=== PATIENT | male | born 1945 | race Caucasian/White ===

== ENCOUNTER → 2017-11-04 | Outpatient (REF) | payer MEDICARE, OTHER ==
[2017-11-04 20:25] LABS: APPEARANCE, URINE HAZY (CLEAR); BACTERIA, URINE AUTO NEGATIVE (NEGATIVE); BILIRUBIN, URINE AUTO NEGATIVE (NEGATIVE); BLOOD, URINE BLOOD NEGATIVE (NEGATIVE); COLOR, URINE YELLOW (YELLOW); GLUCOSE, URINE (UA) AUTO NEGATIVE (NEGATIVE); KETONE, URINE AUTO NEGATIVE (NEGATIVE); LEUKOCYTE ESTERASE, URINE AUTO NEGATIVE (NEGATIVE); MUCUS, URINE SMALL (NEGATIVE); NITRITE, URINE AUTO NEGATIVE (NEGATIVE); PROTEIN, URINE AUTO NEGATIVE (NEGATIVE); RBC, URINE AUTO 3 /HPF (0-3); SQUAMOUS EPITHELIAL CELL UR AU 0 /HPF (0-6); UROBILINOGEN, URINE AUTO 0.2 mg/dL (0.0-2.0); WBC, URINE AUTO 1 /HPF (0-3)
== END ==
LOC: M SMT 16:59
DX: R10.9 Unspecified abdominal pain (principal)
CPT/HCPCS: 81001

== ENCOUNTER → 2017-11-08 | Outpatient (CLI) | payer MEDICARE, BC, OTHER | LOC: M RAD 08:56 | DX: R10.9 Unspecified abdominal pain (principal) | CPT/HCPCS: 74176 ==

== ENCOUNTER → 2017-12-01 | Outpatient (CLI) | payer MEDICARE, BC, OTHER ==
[2017-12-01 08:44] LABS: HEMATOCRIT 46.3 % (42.0-52.0); HEMOGLOBIN 15.6 g/dl (13.5-17.5); MEAN CORPUSCULAR HEMOGLOBIN 32.6 pg (27.0-33.0); MEAN CORPUSCULAR HGB CONC 33.7 g/dl (32.0-36.5); MEAN CORPUSCULAR VOLUME 96.7 fl (80.0-96.0); PLATELET COUNT, AUTOMATED 195 10^3/uL (150-450); RED BLOOD COUNT 4.79 10^6/uL (4.30-6.10); RED CELL DISTRIBUTION WIDTH 12.5 % (11.5-14.5); WHITE BLOOD COUNT 5.1 10^3/uL (4.0-10.0)
[2017-12-01 08:54] LABS: INR 1.03; PROTHROMBIN TIME 13.6 SECONDS (12.1-14.4)
[2017-12-01 09:08] LABS: ANION GAP 9 MEQ/L (8-16); BLOOD UREA NITROGEN 21 MG/DL (7-18); CALCIUM LEVEL 8.8 MG/DL (8.8-10.2); CARBON DIOXIDE LEVEL 26 MEQ/L (21-32); CHLORIDE LEVEL 108 MEQ/L (98-107); CREATININE FOR GFR 1.33 MG/DL (0.70-1.30); GLOMERULAR FILTRATION RATE 56.1 (>42); GLUCOSE, FASTING 220 MG/DL (70-100); POTASSIUM SERUM 4.7 MEQ/L (3.5-5.1); SODIUM LEVEL 143 MEQ/L (136-145)
== END ==
LOC: M LAB 07:50
DX: Z01.812 Encounter for preprocedural laboratory examination (principal); N20.0 Calculus of kidney
CPT/HCPCS: 71046

== ENCOUNTER 2017-12-08 05:58 | Day surgery (SDC) | payer MEDICARE, BC, OTHER ==
[2017-12-08 06:44] LABS: BEDSIDE GLUCOSE 147 MG/DL (83-110)
[2017-12-08] MEDS: LR 1,000 ML IV (06:56)
[2017-12-08] MEDS ORDERED: LIDOCAINE 2% INJ 100 MG/5 ML SDV (FOR ANES.) As Ordered (07:20)
[2017-12-08] MEDS ORDERED: PROPOFOL 200 MG/20 ML VIAL As Ordered (07:21)
[2017-12-08] MEDS ORDERED: fentaNYL 100 MCG/2 ML INJECTION (J3010) As Ordered (07:21)
[2017-12-08] MEDS ORDERED: ONDANSETRON 4MG/2ML VIAL (J2405) As Ordered (07:21)
[2017-12-08] MEDS ORDERED: MIDAZOLAM INJ 2 MG/2 ML VIAL (J2250) As Ordered (07:21)
[2017-12-08] MEDS ORDERED: KETOROLAC 60 MG/2 ML VIAL (J1885) As Ordered (07:21)
[2017-12-08] MEDS ORDERED: dexameTHASONE 4 MG/ML 1ML VIAL (J1100) As Ordered (07:21)
[2017-12-08] MEDS: ceFAZolin SOD 1 GM in D5W MINI-BAG PLUS 50 ML IV (07:30)
[2017-12-08] MEDS: CONRAY-60 60% 50ML VIAL (Q9961) As Ordered (08:16)
[2017-12-08] MEDS ORDERED: NORCO, ANEXSIA 5/325MG TABLET (HYDROcodone/ACETAMINOPHEN) PO (09:30)
[2017-12-08] MEDS ORDERED: ONDANSETRON 4MG/2ML VIAL (J2405) IV (09:30)
[2017-12-08] MEDS ORDERED: PERCOCET 5MG/325MG TAB PO ×2 (09:30)
[2017-12-08] MEDS ORDERED: LR 1,000 ML IV (09:30)
[2017-12-08] MEDS ORDERED: fentaNYL 100 MCG/2 ML INJECTION (J3010) IV (09:30)
== END 2017-12-08 10:55 | disposition home or self-care (01) ==
LOC: M SDC 05:58
DX: N20.0 Calculus of kidney (principal); I10 Essential (primary) hypertension; E11.9 Type 2 diabetes mellitus without complications; Z79.82 Long term (current) use of aspirin; Z79.899 Other long term (current) drug therapy; Z79.84 Long term (current) use of oral hypoglycemic drugs
CPT/HCPCS: 52356

== ENCOUNTER → 2018-01-31 | Outpatient (CLI) | payer MEDICARE, BC, OTHER | LOC: M SMT 14:25 | DX: R14.0 Abdominal distension (gaseous) (principal); N20.0 Calculus of kidney; Z96.0 Presence of urogenital implants | CPT/HCPCS: 74018; 81001 ==

== ENCOUNTER → 2018-01-31 | Outpatient (REF) | payer MEDICARE, OTHER ==
[2018-01-31 19:14] LABS: APPEARANCE, URINE CLOUDY (CLEAR); BACTERIA, URINE AUTO 1+ (NEGATIVE); BILIRUBIN, URINE AUTO NEGATIVE (NEGATIVE); BLOOD, URINE BLOOD 2+ (NEGATIVE); COLOR, URINE YELLOW (YELLOW); GLUCOSE, URINE (UA) AUTO 1+ mg/dL (NEGATIVE); KETONE, URINE AUTO NEGATIVE (NEGATIVE); LEUKOCYTE ESTERASE, URINE AUTO 2+ (NEGATIVE); MUCUS, URINE SMALL (NEGATIVE); NITRITE, URINE AUTO NEGATIVE (NEGATIVE); PROTEIN, URINE AUTO 1+ mg/dL (NEGATIVE); RBC, URINE AUTO 36 /HPF (0-3); SPECIFIC GRAVITY URINE AUTO 1.018 (1.002-1.035); SQUAMOUS EPITHELIAL CELL UR AU 0 /HPF (0-6); UROBILINOGEN, URINE AUTO 0.2 mg/dL (0.0-2.0); WBC, URINE AUTO 9 /HPF (0-3)
== END ==
LOC: M SMT 17:20
DX: N20.0 Calculus of kidney (principal)
CPT/HCPCS: 81001

== ENCOUNTER → 2018-03-01 | Outpatient (REF) | payer MEDICARE, OTHER ==
[2018-03-01 14:31] LABS: HEPATITIS C VIRUS ABY INDEX < 0.0 INDEX (<0.8)
== END ==
LOC: M LAB REF 12:21
DX: Z01.89 Encounter for other specified special examinations (principal)
CPT/HCPCS: 86803

== ENCOUNTER 2018-03-08 07:39 | Day surgery (SDC) | payer MEDICARE, BC, OTHER ==
[~2018-03-08 07:39] MED LIST: ACETAMINOPHEN 325 MG TAB PO; PHENYLEPHRINE HCL 10 % OPHTH. SOL 5ML OD
[2018-03-08 08:32] LABS: BEDSIDE GLUCOSE 172 MG/DL (83-110)
[2018-03-08] MEDS: TROPICAMIDE 1% OPHTH SOLN 2ML OD (08:51)
[2018-03-08] MEDS: CYCLOPENTOLATE 2% OPHTH SOLN 2ML BTL OD (08:51)
[2018-03-08] MEDS: PHENYLEPHRINE 2.5% OPHTH SOL 2ML OD (08:51)
[2018-03-08] MEDS: LIDOCAINE 3.5 % 1ML OPHTH TOPICAL GEL OU (08:52)
[2018-03-08] MEDS: OFLOXACIN 0.3 % (OCUFLOX) OPTH SOL 5ML OD (08:52)
[2018-03-08] MEDS ORDERED: fentaNYL 100 MCG/2 ML INJECTION (J3010) As Ordered (09:46)
[2018-03-08] MEDS ORDERED: MIDAZOLAM INJ 2 MG/2 ML VIAL (J2250) As Ordered (09:46)
[2018-03-08] MEDS: POVIDONE-IODINE 5% OPHTH PREP SOL 30ML As Ordered (10:17)
[2018-03-08] MEDS: TRIAMCINOLONE PRES FR 40 MG/ML 1ML(TRIESENCE)(OR EYE ONLY)(J3300 PER 1MG) As Ordered (10:25)
[2018-03-08] MEDS: HEALON DUET (HEALON 10MG/ML 0.55ML & HEALON ENDOCOAT 30MG/ML 0.85ML) As Ordered (10:25)
[2018-03-08] MEDS: MOXIFLOXACIN IN BSS 0.25MG/0.25ML INTRACAMERAL INJ (OR EYE ONLY)(J2280) As Ordered (10:25)
[2018-03-08] MEDS: BSS with VANC/TOB/EPI for EYE CASES IR (10:26)
[2018-03-08] MEDS: LIDOCAINE 2% W/EPIN INJ 20ML **PRES FREE XX (10:26)
[2018-03-08] MEDS: LIDOCAINE 1% SDV 5 ML VIAL As Ordered (10:27)
[2018-03-08] MEDS ORDERED: TRIMETHOBENZAMIDE 300 MG CAP PO (11:00)
[2018-03-08] MEDS: AcetaZOLAMIDE 500 MG ER CAP PO (11:02)
== END 2018-03-08 11:18 | disposition home or self-care (01) ==
LOC: M SDC 07:39
DX: H25.9 Unspecified age-related cataract (principal); I10 Essential (primary) hypertension; E78.5 Hyperlipidemia, unspecified; E11.9 Type 2 diabetes mellitus without complications; Z79.84 Long term (current) use of oral hypoglycemic drugs; Z79.899 Other long term (current) drug therapy
CPT/HCPCS: 66984

== ENCOUNTER 2018-03-15 09:03 | Day surgery (SDC) | payer MEDICARE, BC, OTHER ==
[~2018-03-15 09:03] MED LIST changes: +MIDAZOLAM INJ 2 MG/2 ML VIAL (J2250) As Ordered; -PHENYLEPHRINE HCL 10 % OPHTH. SOL 5ML OD; +PHENYLEPHRINE HCL 10 % OPHTH. SOL 5ML OS; +fentaNYL 100 MCG/2 ML INJECTION (J3010) As Ordered
[2018-03-15] MEDS: TROPICAMIDE 1% OPHTH SOLN 2ML OS (09:42)
[2018-03-15] MEDS: CYCLOPENTOLATE 2% OPHTH SOLN 2ML BTL OS (09:42)
[2018-03-15] MEDS: LIDOCAINE 3.5 % 1ML OPHTH TOPICAL GEL OU (09:42)
[2018-03-15] MEDS: PHENYLEPHRINE 2.5% OPHTH SOL 2ML OS (09:42)
[2018-03-15] MEDS: OFLOXACIN 0.3 % (OCUFLOX) OPTH SOL 5ML OS (09:42)
[2018-03-15] MEDS: BSS with VANC/TOB/EPI for EYE CASES IR (11:55)
[2018-03-15] MEDS: MOXIFLOXACIN IN BSS 0.25MG/0.25ML INTRACAMERAL INJ (OR EYE ONLY)(J2280) As Ordered (11:55)
[2018-03-15] MEDS: TRIAMCINOLONE PRES FR 40 MG/ML 1ML(TRIESENCE)(OR EYE ONLY)(J3300 PER 1MG) As Ordered (11:55)
[2018-03-15] MEDS: HEALON DUET PRO(HEALON 10MG/ML 0.55ML & HEALON ENDOCOAT 30MG/ML 0.85ML) As Ordered (11:55)
[2018-03-15] MEDS: LIDOCAINE 1% SDV 5 ML VIAL As Ordered (11:55)
[2018-03-15] MEDS: POVIDONE-IODINE 5% OPHTH PREP SOL 30ML As Ordered (11:55)
[2018-03-15] MEDS ORDERED: AcetaZOLAMIDE 500 MG ER CAP As Ordered (12:29)
[2018-03-15] MEDS: AcetaZOLAMIDE 500 MG ER CAP PO (12:35)
[2018-03-15] MEDS ORDERED: TRIMETHOBENZAMIDE 300 MG CAP PO (12:45)
== END 2018-03-15 12:50 | disposition home or self-care (01) ==
LOC: M SDC 09:03
DX: H25.9 Unspecified age-related cataract (principal); I10 Essential (primary) hypertension; E11.9 Type 2 diabetes mellitus without complications; E78.5 Hyperlipidemia, unspecified; Z79.84 Long term (current) use of oral hypoglycemic drugs; Z79.899 Other long term (current) drug therapy
CPT/HCPCS: 66984

== ENCOUNTER → 2018-05-17 | Outpatient (CLI) | payer MEDICARE, BC, OTHER ==
[~2018-05-17] MED LIST changes: -ACETAMINOPHEN 325 MG TAB PO; +ASPI1TAB15 PO; +CRAN400C PO; +CRES10TA32 PO; +GLIM2TA PO; +JANU100T PO; +LOSA25TA14 PO; +METF500T4 PO; -MIDAZOLAM INJ 2 MG/2 ML VIAL (J2250) As Ordered; +MULT1TAB10 PO; -PHENYLEPHRINE HCL 10 % OPHTH. SOL 5ML OS; +POTA10808 PO; +VITAE20CA PO; -fentaNYL 100 MCG/2 ML INJECTION (J3010) As Ordered
[2018-05-17 14:04] LABS: APPEARANCE, URINE HAZY (CLEAR); BACTERIA, URINE AUTO NEGATIVE (NEGATIVE); BILIRUBIN, URINE AUTO NEGATIVE (NEGATIVE); BLOOD, URINE BLOOD NEGATIVE (NEGATIVE); COLOR, URINE YELLOW (YELLOW); GLUCOSE, URINE (UA) AUTO NEGATIVE (NEGATIVE); KETONE, URINE AUTO NEGATIVE (NEGATIVE); LEUKOCYTE ESTERASE, URINE AUTO NEGATIVE (NEGATIVE); NITRITE, URINE AUTO NEGATIVE (NEGATIVE); PROTEIN, URINE AUTO NEGATIVE (NEGATIVE); RBC, URINE AUTO 1 /HPF (0-3); SPECIFIC GRAVITY URINE AUTO 1.017 (1.002-1.035); SQUAMOUS EPITHELIAL CELL UR AU 0 /HPF (0-6); UROBILINOGEN, URINE AUTO 0.2 mg/dL (0.0-2.0); WBC, URINE AUTO 0 /HPF (0-3)
[2018-05-17 14:12] LABS: BLOOD UREA NITROGEN 32 MG/DL (7-18); CALCIUM LEVEL 9.7 MG/DL (8.8-10.2); CARBON DIOXIDE LEVEL 28 MEQ/L (21-32); CHLORIDE LEVEL 106 MEQ/L (98-107); CREATININE FOR GFR 1.23 MG/DL (0.70-1.30); GLOMERULAR FILTRATION RATE > 60.0 (>42); GLUCOSE, FASTING 80 MG/DL (70-100); POTASSIUM SERUM 5.1 MEQ/L (3.5-5.1); SODIUM LEVEL 140 MEQ/L (136-145)
== END ==
LOC: M SMT 11:47
PROVIDERS: ATTEND Urology
DX: N20.0 Calculus of kidney (principal)

== ENCOUNTER → 2018-06-08 | Outpatient (CLI) | payer MEDICARE, BC, OTHER ==
[2018-06-08 14:09] LABS: BLOOD UREA NITROGEN 26 MG/DL (7-18); CALCIUM LEVEL 9.3 MG/DL (8.8-10.2); CARBON DIOXIDE LEVEL 29 MEQ/L (21-32); CHLORIDE LEVEL 106 MEQ/L (98-107); CREATININE FOR GFR 1.24 MG/DL (0.70-1.30); GLOMERULAR FILTRATION RATE > 60.0 (>42); GLUCOSE, FASTING 167 MG/DL (70-100); POTASSIUM SERUM 4.5 MEQ/L (3.5-5.1); SODIUM LEVEL 140 MEQ/L (136-145)
[2018-06-08 14:11] LABS: APPEARANCE, URINE HAZY (CLEAR); BACTERIA, URINE AUTO NEGATIVE (NEGATIVE); BILIRUBIN, URINE AUTO NEGATIVE (NEGATIVE); BLOOD, URINE BLOOD NEGATIVE (NEGATIVE); COLOR, URINE YELLOW (YELLOW); GLUCOSE, URINE (UA) AUTO 3+ mg/dL (NEGATIVE); KETONE, URINE AUTO NEGATIVE (NEGATIVE); LEUKOCYTE ESTERASE, URINE AUTO NEGATIVE (NEGATIVE); MUCUS, URINE SMALL (NEGATIVE); NITRITE, URINE AUTO NEGATIVE (NEGATIVE); PROTEIN, URINE AUTO NEGATIVE (NEGATIVE); RBC, URINE AUTO 2 /HPF (0-3); SPECIFIC GRAVITY URINE AUTO 1.018 (1.002-1.035); SQUAMOUS EPITHELIAL CELL UR AU 0 /HPF (0-6); UROBILINOGEN, URINE AUTO 0.2 mg/dL (0.0-2.0); WBC, URINE AUTO 0 /HPF (0-3)
== END ==
LOC: M SMT 09:23
PROVIDERS: ATTEND Urology
DX: N20.0 Calculus of kidney (principal)

== ENCOUNTER → 2018-07-25 | Outpatient (CLI) | payer MEDICARE, BC, OTHER ==
--- NOTE | 2018-07-25 12:42 | REP ---
RIGHT WRIST SERIES: Four views. HISTORY: Pain. No comparison study. FINDINGS: Overall mineralization pattern is normal. There are moderate to advanced osteoarthritic changes at the 1st carpometacarpal articulation. There is also osteoarthritic narrowing and sclerosis at the articulation between the capitate and the lunate. Some radiocarpal sclerosis and spur formation is seen. No erosive changes seen. IMPRESSION: Moderate osteoarthritic changes as above. Electronically Signed by Anatoly Ronquillo MD 07/25/2018 03:01 P
[2018-07-25 12:59] LABS: BASO % 0.4 % (0.0-1.0); EOS # 0.1 10^3/uL (0.0-0.50); EOS % 1.1 % (0.0-3.0); HEMOGLOBIN 16.1 g/dl (13.5-17.5); LYMPH # 1.3 10^3/uL (1.5-4.5); LYMPH % 14.8 % (24.0-44.0); MEAN CORPUSCULAR HGB CONC 33.5 g/dl (32.0-36.5); MEAN CORPUSCULAR VOLUME 95.4 fl (80.0-96.0); MONO # 0.9 10^3/uL (0.0-0.8); MONO % 9.6 % (0.0-5.0); NEUTROPHILS # 6.7 10^3/uL (1.8-7.7); NEUTROPHILS % 73.9 % (36.0-66.0); PLATELET COUNT, AUTOMATED 235 10^3/uL (150-450); RED BLOOD COUNT 5.03 10^6/uL (4.30-6.10)
== END ==
LOC: M WUC 08:46
PROVIDERS: ATTEND Physician Assistant
DX: M18.11 Unilateral primary osteoarthritis of first carpometacarpal joint, right hand (principal); M25.731 Osteophyte, right wrist

== ENCOUNTER → 2018-09-15 | Outpatient (CLI) | payer MEDICARE, BC, OTHER ==
[~2018-09-15] MED LIST changes: +CRES10TA PO; -CRES10TA32 PO; -GLIM2TA PO; +GLIM2TAB29 PO
--- NOTE | 2018-09-15 16:33 | REP ---
CT abdomen and pelvis without IV or oral contrast: Renal stone protocol. History: Back pain. History of stones. Comparison CT study November 08, 2017. 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 The lung base windows demonstrate several bilateral lower lobe pulmonary nodules which are not calcified. The largest of these measures 19 mm in diameter. These are unchanged from prior CT study dated December 23, 2014. None of these appear to be new. No pleural effusion is seen. The liver and the spleen are normal in size homogeneous in texture. No adrenal lesion is seen. No abnormalities noted in the gallbladder or the pancreas. Small and large intestinal bowel loops are normal. Normal appendix is seen. Prostate gland is mildly to moderately enlarged and contains a few dystrophic calcifications. Urinary bladder is unremarkable. Seminal vesicles are unremarkable. No abdominal wall defect is seen. There is bilateral intrarenal nephrolithiasis. No hydronephrosis is seen. The largest calculus is in the lower pole on the left measuring 11 mm in greatest diameter. There is a 9 mm calculus in the lower pole on the right. There is a tiny 3 mm calculus in the upper pole on the left. The right intrarenal calculus is smaller than the calculus seen on November 08, 2017. The lower pole calculus on the left is larger than the calculus seen on November 18, 2017. Impression: Bilateral intrarenal nephrolithiasis as above. No hydronephrosis is seen. The left kidney is a little smaller than the right. Enlarged prostate. Stable bilateral lower lobe pulmonary nodules. Electronically Signed by Anatoly Ronquillo MD 09/15/2018 06:33 P
== END ==
LOC: M RAD 08:11
PROVIDERS: ATTEND Nurse Practitioner Women's Health
DX: N20.0 Calculus of kidney (principal); N40.1 Benign prostatic hyperplasia with lower urinary tract symptoms; Z87.442 Personal history of urinary calculi

== ENCOUNTER → 2018-09-27 | Outpatient (CLI) | payer MEDICARE, BC, OTHER ==
[~2018-09-27] MED LIST changes: +OMEGCAP4 PO
--- NOTE | 2018-09-27 14:02 | REP ---
Clinical: Nephrolithiasis. Technique: Two supine views of the abdomen and pelvis. Findings: Evaluation of the urinary tract system is significantly limited due to technique and overlying bowel gas pattern. Urinary tract calcifications cannot be excluded based on current examination. Bowel gas pattern is nonspecific. No organomegaly. Skeletal structures demonstrate age-related changes. Impression: Examination is severely limited for evaluation of urinary tract calcifications. Electronically Signed by Titi Arreola MD 09/27/2018 01:54 P
== END ==
LOC: M SMT 13:36
PROVIDERS: ATTEND Nurse Practitioner Women's Health
DX: N20.0 Calculus of kidney (principal)
CPT/HCPCS: 74018; G0463

== ENCOUNTER → 2018-10-25 | Outpatient (CLI) | payer MEDICARE, BC, OTHER ==
--- NOTE | 2018-10-25 14:25 | REP ---
Clinical: Preoperative assessment. Nephroureterolithiasis. Comparison: 12/01/2017 . Technique: PA and lateral. Findings: The mediastinum and cardiac silhouette are normal. The lung redding are clear and without acute consolidation, effusion, or pneumothorax. The skeletal structures are intact and normal. Impression: 1. No acute cardiopulmonary process. Electronically Signed by Titi Arreola MD 10/25/2018 02:17 P
[2018-10-25 17:18] LABS: APPEARANCE, URINE HAZY (CLEAR); BACTERIA, URINE AUTO NEGATIVE (NEGATIVE); BILIRUBIN, URINE AUTO NEGATIVE (NEGATIVE); BLOOD, URINE BLOOD 3+ (NEGATIVE); COLOR, URINE YELLOW (YELLOW); GLUCOSE, URINE (UA) AUTO 2+ mg/dL (NEGATIVE); KETONE, URINE AUTO NEGATIVE (NEGATIVE); LEUKOCYTE ESTERASE, URINE AUTO NEGATIVE (NEGATIVE); MUCUS, URINE SMALL (NEGATIVE); NITRITE, URINE AUTO NEGATIVE (NEGATIVE); PROTEIN, URINE AUTO NEGATIVE (NEGATIVE); RBC, URINE AUTO 30 /HPF (0-3); SPECIFIC GRAVITY URINE AUTO 1.021 (1.002-1.035); SQUAMOUS EPITHELIAL CELL UR AU 0 /HPF (0-6); UROBILINOGEN, URINE AUTO 0.2 mg/dL (0.0-2.0); WBC, URINE AUTO 1 /HPF (0-3)
[2018-10-25 17:46] LABS: INR 1.08; PROTHROMBIN TIME 13.7 SECONDS (11.8-14.0)
[2018-10-25 17:47] LABS: PARTIAL THROMBOPLASTIN TIME 31.9 SECONDS (25.0-38.4)
== END ==
LOC: M SMT 13:46
PROVIDERS: ATTEND Nurse Practitioner Women's Health
DX: Z01.812 Encounter for preprocedural laboratory examination (principal); N20.0 Calculus of kidney

== ENCOUNTER 2018-11-07 06:10 | Day surgery (SDC) | payer MEDICARE, BC, OTHER ==
[~2018-11-07] VITALS: Ht 177.8 cm; Wt 123.7 kg
[~2018-11-07 06:10] MED LIST changes: +LR 1,000 ML IV ONE; +ceFAZolin SOD 1 GM in D5W MINI-BAG PLUS 50 ML IV ONE
[2018-11-07] MEDS ORDERED: CONRAY-60 60% 50ML VIAL (Q9961) As Ordered ONE (06:56)
[2018-11-07] MEDS ORDERED: LIDOCAINE 2% INJ 100 MG/5 ML SDV (FOR ANES.) As Ordered ONE (07:12)
[2018-11-07] MEDS ORDERED: PROPOFOL 200 MG/20 ML VIAL As Ordered ONE ×2 (07:12→08:45)
[2018-11-07] MEDS ORDERED: MIDAZOLAM INJ 2 MG/2 ML VIAL (J2250) As Ordered ONE (07:13)
[2018-11-07] MEDS ORDERED: fentaNYL 100 MCG/2 ML INJECTION (J3010) As Ordered ONE (07:13)
[2018-11-07] MEDS ORDERED: ONDANSETRON 4MG/2ML VIAL (J2405) As Ordered ONE (07:38)
[2018-11-07] MEDS ORDERED: dexameTHASONE 4 MG/ML 1ML VIAL (J1100) As Ordered ONE (07:38)
[2018-11-07] MEDS ORDERED: PHENYLephrine HCL 500 MCG/5 ML (100MCG/ML) SYRINGE (J2370) As Ordered ONE (07:55)
[2018-11-07] MEDS ORDERED: ePHEDrine SULFATE 25 MG/5 ML(5MG/ML) SYRINGE As Ordered ONE (08:02)
--- NOTE | 2018-11-07 09:09 | REP ---
Retrograde pyelogram: Five views. History: Cystoscopy. 20 seconds of fluoroscopy time is reported. Findings: A sequence of five last image hold fluoroscopically obtained spot radiographs of the abdomen document bilateral ureteral cannulation, contrast injection, hydronephrosis, and double pigtail ureteral stent placement. Electronically Signed by Anatoly Ronquillo MD 11/07/2018 04:44 P
[2018-11-07] MEDS ORDERED: HYDROMORPHONE HCL 0.5 MG/ 0.5 ML SYRINGE (J1170 PER 1) IV PRN (09:30)
[2018-11-07] MEDS ORDERED: LR 1,000 ML IV SCH (09:30)
[2018-11-07] MEDS ORDERED: fentaNYL 100 MCG/2 ML INJECTION (J3010) IV PRN (09:30)
[2018-11-07] MEDS ORDERED: PERCOCET 5MG/325MG TAB PO PRN ×2 (09:30)
[2018-11-07] MEDS ORDERED: ONDANSETRON 4MG/2ML VIAL (J2405) IV PRN (09:30)
[2018-11-07 10:05] VITALS: BP 166/79
--- NOTE | 2018-11-07 11:18 | RO ---
DATE OF PROCEDURE: 11/07/2018 PREPROCEDURE DIAGNOSIS: Bilateral kidney stones. POSTPROCEDURE DIAGNOSES: Bilateral kidney stones, bladder mass. PROCEDURE: Cystoscopy, bilateral ureteroscopy with laser lithotripsy with basket extraction of stones, bilateral retrograde pyelogram with intraoperative interpretation of images, bilateral ureteral stent placement, bladder biopsy. SURGEON: Jose M Nichols MD TRIAL MGR: None. ANESTHESIA: General. OPERATIVE INDICATIONS: This is a 72-year-old male who has a long history of kidney stones who was found to have new stones on recent imaging. He was brought to the operating room today for the above-listed procedure. DESCRIPTION OF PROCEDURE: The patient was brought to the operating room, and general anesthesia was induced. Prophylactic antibiotics were infused. He was then placed in the dorsal lithotomy position and prepped and draped in the usual sterile fashion. A rigid cystoscope was inserted into the urethral meatus and advanced into the bladder. Once inside the bladder, the patient was found to have a small left 1 cm papillary mass sitting right in the middle of the trigone. At this point, a wire was advanced into the left collecting system. I then advanced a ureteral access sheath up the left collecting system. I went up the access sheath with a flexible ureteroscope and examined the left kidney thoroughly. The patient had a large amount of stone debris inside the left kidney. He was also found to have an approximately 1 cm stone in the left kidney. This stone was then fragmented into smaller pieces using a 272 micron laser fiber. All the fragments were then removed using a basket. A retrograde pyelogram was performed and it was notable for mild left hydronephrosis with no extravasation. I then withdrew the ureteroscope, along with the access sheath, and no additional stones were seen within the ureter. I then utilized the wire to advance a 6-Tajik x 22-32 cm double J ureteral stent up into the left collecting system. The wire was removed, and there were adequate curls of the stent in the left renal pelvis and in the bladder. I then advanced the wire up the right collecting system. I then advanced the ureteral access sheath over the wire into the right collecting system. I went up the access sheath with a flexible ureteroscope. The right kidney was then thoroughly examined. Within the lower pole of the right kidney, approximately four or five stones were seen, measuring around 3-4 mm in size. All of these stones were then removed using a basket. Once all the larger stone fragments had been removed, a retrograde pyelogram was performed and was notable for mild right hydronephrosis with no extravasation. At this point, the ureteroscope was removed, along with the access sheath, and no stones were seen within the ureter. I then utilized the wire to advance a 6-Tajik x 22-32 cm double J ureteral stent up the right collecting system. The wire was removed, and there were adequate curls of the stent in the right ureteral pelvis and in the bladder. At this point, I then utilized cold cup biopsy forceps to biopsy and remove the small papillary mass. Once that was done, the specimen was taken out of the bladder to send off for pathologic analysis. I then utilized a Bugbee to cauterize the area of the biopsy. Once there was good hemostasis, this marked the conclusion of the procedure. The bladder was emptied of all fluids. The patient was then taken out of the dorsal lithotomy position, awakened from anesthesia, and transported to the recovery room in stable condition. ESTIMATED BLOOD LOSS: 5 mL. COMPLICATIONS: None. SPECIMENS: Kidney stones, bladder mass. PLAN: The patient will followup in a week or two for stent removal. We will also go over the pathology results at that time. KAYLAH
== END 2018-11-07 10:40 | disposition home or self-care (01) ==
LOC: M SDC 06:10
PROVIDERS: ATTEND Urology
DX: N20.0 Calculus of kidney (principal); I10 Essential (primary) hypertension; E10.9 Type 1 diabetes mellitus without complications; E78.00 Pure hypercholesterolemia, unspecified; R06.83 Snoring; E66.9 Obesity, unspecified; Z68.39 Body mass index [BMI] 39.0-39.9, adult; Z79.899 Other long term (current) drug therapy; Z79.4 Long term (current) use of insulin; Z96.1 Presence of intraocular lens; Z98.41 Cataract extraction status, right eye; Z98.42 Cataract extraction status, left eye; Z96.653 Presence of artificial knee joint, bilateral
CPT/HCPCS: 52356; 74420; 82360; 88300; 88305; C1769; C1894; C2617; J0690; J1100; J2250; J2370; J2405; J3010; Q9961

== ENCOUNTER → 2018-12-27 | Outpatient (CLI) | payer MEDICARE, BC, OTHER ==
[~2018-12-27] MED LIST changes: -LR 1,000 ML IV ONE; -ceFAZolin SOD 1 GM in D5W MINI-BAG PLUS 50 ML IV ONE
[2018-12-27 13:30] LABS: APPEARANCE, URINE CLEAR (CLEAR); BACTERIA, URINE AUTO NEGATIVE (NEGATIVE); BILIRUBIN, URINE AUTO NEGATIVE (NEGATIVE); BLOOD, URINE BLOOD NEGATIVE (NEGATIVE); COLOR, URINE YELLOW (YELLOW); GLUCOSE, URINE (UA) AUTO 3+ mg/dL (NEGATIVE); KETONE, URINE AUTO NEGATIVE (NEGATIVE); LEUKOCYTE ESTERASE, URINE AUTO NEGATIVE (NEGATIVE); NITRITE, URINE AUTO NEGATIVE (NEGATIVE); PROTEIN, URINE AUTO NEGATIVE (NEGATIVE); RBC, URINE AUTO 1 /HPF (0-3); SPECIFIC GRAVITY URINE AUTO 1.023 (1.002-1.035); SQUAMOUS EPITHELIAL CELL UR AU 0 /HPF (0-6); UROBILINOGEN, URINE AUTO 0.2 mg/dL (0.0-2.0); WBC, URINE AUTO 0 /HPF (0-3)
[2018-12-27 13:53] LABS: CALCIUM LEVEL 9.3 MG/DL (8.8-10.2); CREATININE FOR GFR 1.32 MG/DL (0.70-1.30); GLOMERULAR FILTRATION RATE 56.4 (>42); POTASSIUM SERUM 4.5 MEQ/L (3.5-5.1)
== END ==
LOC: M SMT 10:42
PROVIDERS: ATTEND Urology
DX: N20.0 Calculus of kidney (principal)

== ENCOUNTER → 2019-01-26 | Outpatient (CLI) | payer MEDICARE, BC, OTHER ==
[~2019-01-26] MED LIST changes: +METF-791 PO; -METF500T4 PO
[2019-01-26 18:51] LABS: FREE T4 1.03 NG/DL (0.76-1.46); FREE THYROXINE INDEX 3.6 % (1.4-3.8); THYROID STIMULATING HORMONE 0.969 uIU/ML (0.358-3.740); THYROXINE (T4) 9.9 UG/DL (4.5-12.0)
[2019-01-26 22:03] LABS: TOTAL T3 110.7 NG/DL (60.0-181.0)
== END ==
LOC: M SMT 10:23
PROVIDERS: ATTEND Ophthalmology
DX: H16.223 Keratoconjunctivitis sicca, not specified as Sjogren's, bilateral (principal); N20.0 Calculus of kidney

== ENCOUNTER → 2019-01-26 | Outpatient (CLI) | payer MEDICARE, BC, OTHER ==
[2019-01-26 15:27] LABS: APPEARANCE, URINE CLEAR (CLEAR); BACTERIA, URINE AUTO NEGATIVE (NEGATIVE); BILIRUBIN, URINE AUTO NEGATIVE (NEGATIVE); BLOOD, URINE BLOOD NEGATIVE (NEGATIVE); COLOR, URINE YELLOW (YELLOW); GLUCOSE, URINE (UA) AUTO 3+ mg/dL (NEGATIVE); KETONE, URINE AUTO NEGATIVE (NEGATIVE); LEUKOCYTE ESTERASE, URINE AUTO NEGATIVE (NEGATIVE); NITRITE, URINE AUTO NEGATIVE (NEGATIVE); PROTEIN, URINE AUTO NEGATIVE (NEGATIVE); RBC, URINE AUTO 0 /HPF (0-3); SPECIFIC GRAVITY URINE AUTO 1.027 (1.002-1.035); SQUAMOUS EPITHELIAL CELL UR AU 0 /HPF (0-6); UROBILINOGEN, URINE AUTO 0.2 mg/dL (0.0-2.0); WBC, URINE AUTO 0 /HPF (0-3)
[2019-01-26 16:45] LABS: CALCIUM LEVEL 9.4 MG/DL (8.8-10.2); CREATININE FOR GFR 1.44 MG/DL (0.70-1.30); GLOMERULAR FILTRATION RATE 51.1 (>42); POTASSIUM SERUM 4.8 MEQ/L (3.5-5.1)
== END ==
LOC: M SMT 10:25
PROVIDERS: ATTEND Urology
DX: N20.0 Calculus of kidney (principal)

== ENCOUNTER → 2019-02-05 | Outpatient (CLI) | payer MEDICARE, BC, OTHER ==
[~2019-02-05] MED LIST changes: +METHACHOLINE KIT (J7674) INH ONE
--- NOTE | 2019-02-05 09:37 | PFTRPT ---
Height: 71.00 Inches Weight: 275.00 Lbs BSA: 2.41 Diagnosis: R05 DATE OF PROCEDURE: 02/05/2019 ORDERED BY: Dr. Nunes INTERPRETATION: Study of excellent technical quality. Under protocol, methacholine was administered. Even after a maximal dose of 25 mg or 188.875 CDUs, no provocation dose ever achieved. IMPRESSION: Negative methacholine challenge study. MTDD
== END ==
LOC: M CARPUL 08:27
PROVIDERS: ATTEND Internal Medicine
DX: R05 Cough (principal)
CPT/HCPCS: 94070; 95070; J7674

== ENCOUNTER 2019-04-16 00:26 | Emergency (ER) | payer MEDICARE, BC, OTHER ==
[~2019-04-16] VITALS: Ht 180.3 cm; Wt 125.0 kg
[~2019-04-16 00:26] MED LIST changes: -METHACHOLINE KIT (J7674) INH ONE
[2019-04-16] MEDS ORDERED: POTA10808 (00:34)
[2019-04-16] MEDS ORDERED: OLME20TA2 (00:34)
[2019-04-16] MEDS ORDERED: FLUT0.003 (00:34)
[2019-04-16] MEDS ORDERED: LIDOCAINE 2% 5ML JELLY UROJET TOP ONE (01:15)
[2019-04-16] MEDS ORDERED: FLOM0.4C39 PO (02:24)
[2019-04-16 02:54] VITALS: BP 178/80
== END 2019-04-16 02:54 | disposition home or self-care (01) ==
LOC: M ED 00:26
DX: R33.9 Retention of urine, unspecified (principal); R10.30 Lower abdominal pain, unspecified; E11.9 Type 2 diabetes mellitus without complications; I10 Essential (primary) hypertension; Z87.442 Personal history of urinary calculi; Z96.0 Presence of urogenital implants; Z79.899 Other long term (current) drug therapy; Z79.84 Long term (current) use of oral hypoglycemic drugs

== ENCOUNTER → 2019-04-23 | Outpatient (CLI) | payer MEDICARE, BC, OTHER ==
[~2019-04-23] MED LIST changes: +FLOM0.4C39 PO; +FLUT0.003; +OLME20TA2; +POTA10808
--- NOTE | 2019-04-23 14:01 | REP ---
Clinical: Urinary retention. Technique: Real time segura scale ultrasound examination using curved array transducer. Findings: Bilateral kidneys are normal in contour, size, echogenicity, and reniform shape without hydronephrosis, nephrolithiasis, cystic or renal mass lesion. Right kidney measures 12.4 x 6.4 x 6.0 cm. Left kidney measures 11.6 x 4.5 x 5.7 cm. Quispe catheter in collapsed bladder. Impression: Normal renal ultrasound. Electronically Signed by Titi Arreola MD 04/23/2019 01:52 P
== END ==
LOC: M RAD 13:08
PROVIDERS: ATTEND Urology
DX: R33.9 Retention of urine, unspecified (principal)

== ENCOUNTER → 2019-04-26 | Outpatient (REF) | payer MEDICARE, OTHER ==
[2019-04-26 14:39] LABS: AMORPHOUS SEDIMENT SMALL (NEGATIVE); APPEARANCE, URINE CLOUDY (CLEAR); BACTERIA, URINE AUTO 2+ (NEGATIVE); BILIRUBIN, URINE AUTO NEGATIVE (NEGATIVE); BLOOD, URINE BLOOD 1+ (NEGATIVE); COLOR, URINE YELLOW (YELLOW); GLUCOSE, URINE (UA) AUTO 3+ mg/dL (NEGATIVE); KETONE, URINE AUTO NEGATIVE (NEGATIVE); LEUKOCYTE ESTERASE, URINE AUTO 3+ (NEGATIVE); NITRITE, URINE AUTO POSITIVE (NEGATIVE); PROTEIN, URINE AUTO NEGATIVE (NEGATIVE); RBC, URINE AUTO 6 /HPF (0-3); SQUAMOUS EPITHELIAL CELL UR AU 0 /HPF (0-6); UROBILINOGEN, URINE AUTO 0.2 mg/dL (0.0-2.0); WBC, URINE AUTO TNTC /HPF (0-3)
== END ==
LOC: M SMT 13:50
PROVIDERS: ATTEND Nurse Practitioner Family
DX: N40.1 Benign prostatic hyperplasia with lower urinary tract symptoms (principal)

== ENCOUNTER → 2019-05-09 | Outpatient (CLI) | payer MEDICARE, OTHER ==
[2019-05-09 13:57] LABS: APPEARANCE, URINE CLEAR (CLEAR); BACTERIA, URINE AUTO NEGATIVE (NEGATIVE); BILIRUBIN, URINE AUTO NEGATIVE (NEGATIVE); BLOOD, URINE BLOOD NEGATIVE (NEGATIVE); COLOR, URINE YELLOW (YELLOW); GLUCOSE, URINE (UA) AUTO 3+ mg/dL (NEGATIVE); KETONE, URINE AUTO NEGATIVE (NEGATIVE); LEUKOCYTE ESTERASE, URINE AUTO NEGATIVE (NEGATIVE); NITRITE, URINE AUTO NEGATIVE (NEGATIVE); PROTEIN, URINE AUTO NEGATIVE (NEGATIVE); RBC, URINE AUTO 0 /HPF (0-3); SPECIFIC GRAVITY URINE AUTO 1.014 (1.002-1.035); SQUAMOUS EPITHELIAL CELL UR AU 0 /HPF (0-6); UROBILINOGEN, URINE AUTO 0.2 mg/dL (0.0-2.0); WBC, URINE AUTO 0 /HPF (0-3)
[2019-05-09 13:59] LABS: CALCIUM LEVEL 9.2 MG/DL (8.8-10.2); CREATININE FOR GFR 2.64 MG/DL (0.70-1.30); GLOMERULAR FILTRATION RATE 25.4 (>42)
== END ==
LOC: M PLALAB 09:08
PROVIDERS: ATTEND Urology
DX: N20.0 Calculus of kidney (principal)

== ENCOUNTER → 2019-05-11 | Outpatient (REF) | payer MEDICARE, OTHER | LOC: M LAB REF 16:42 | PROVIDERS: ATTEND Internal Medicine | DX: L57.0 Actinic keratosis (principal); L91.8 Other hypertrophic disorders of the skin; J06.9 Acute upper respiratory infection, unspecified | CPT/HCPCS: 51798; 86140; G0463 ==

== ENCOUNTER → 2019-06-08 | Outpatient (REF) | payer MEDICARE, OTHER ==
[2019-06-08 18:25] LABS: APPEARANCE, URINE CLOUDY (CLEAR); BACTERIA, URINE AUTO 1+ (NEGATIVE); BILIRUBIN, URINE AUTO NEGATIVE (NEGATIVE); BLOOD, URINE BLOOD 1+ (NEGATIVE); COLOR, URINE YELLOW (YELLOW); GLUCOSE, URINE (UA) AUTO 3+ mg/dL (NEGATIVE); KETONE, URINE AUTO NEGATIVE (NEGATIVE); LEUKOCYTE ESTERASE, URINE AUTO 2+ (NEGATIVE); NITRITE, URINE AUTO POSITIVE (NEGATIVE); PROTEIN, URINE AUTO NEGATIVE (NEGATIVE); RBC, URINE AUTO 10 /HPF (0-3); SPECIFIC GRAVITY URINE AUTO 1.023 (1.002-1.035); SQUAMOUS EPITHELIAL CELL UR AU 0 /HPF (0-6); UROBILINOGEN, URINE AUTO 0.2 mg/dL (0.0-2.0); WBC, URINE AUTO TNTC /HPF (0-3)
== END ==
LOC: M SMT 16:40
PROVIDERS: ATTEND Urology
DX: R35.0 Frequency of micturition (principal)

== ENCOUNTER → 2019-12-11 | Outpatient (REF) | payer MEDICARE, BC, OTHER ==
[~2019-12-11] MED LIST changes: +ASPI-546 PO; -ASPI1TAB15 PO; -METF-791 PO; +METF-838 PO
[2020-01-13 11:31] LABS: APPEARANCE, URINE CLEAR (CLEAR); BACTERIA, URINE AUTO NEGATIVE (NEGATIVE); BILIRUBIN, URINE AUTO NEGATIVE (NEGATIVE); BLOOD, URINE BLOOD NEGATIVE (NEGATIVE); COLOR, URINE YELLOW (YELLOW); GLUCOSE, URINE (UA) AUTO 3+ mg/dL (NEGATIVE); KETONE, URINE AUTO NEGATIVE (NEGATIVE); LEUKOCYTE ESTERASE, URINE AUTO NEGATIVE (NEGATIVE); NITRITE, URINE AUTO NEGATIVE (NEGATIVE); PROTEIN, URINE AUTO NEGATIVE (NEGATIVE); RBC, URINE AUTO 0 /HPF (0-3); SPECIFIC GRAVITY URINE AUTO 1.017 (1.002-1.035); SQUAMOUS EPITHELIAL CELL UR AU 0 /HPF (0-6); UROBILINOGEN, URINE AUTO 0.2 mg/dL (0.0-2.0); WBC, URINE AUTO 0 /HPF (0-3)
== END ==
LOC: M SMT 15:30
PROVIDERS: ATTEND Urology
DX: N20.0 Calculus of kidney (principal)
CPT/HCPCS: 51798; 81000; 81001; G0463

== ENCOUNTER → 2020-02-15 | Outpatient (CLI) | payer MEDICARE, BC, OTHER ==
--- NOTE | 2020-02-15 09:22 | REP ---
INDICATION: CALCULUS OF KIDNEY COMPARISON: 04/23/2019 TECHNIQUE: Real time segura scale ultrasound examination using curved array transducer. FINDINGS: The bilateral kidneys are relatively normal in reniform shape and demonstrate increased central sinus fat along with echogenic intrarenal vasculature consistent with age related medical renal disease. Right kidney measures 13.1 x 6.5 x 6.3 cm without hydronephrosis, cystic or renal mass lesion. Small echogenic foci may reflect renovascular calcifications versus small nonobstructing nephroliths. Left kidney measures 11.4 x 4.6 x 6.1 cm with lobulation suggesting prior scarring and no hydronephrosis, cystic or renal mass lesion. Small echogenic foci may reflect renal vascular calcifications versus small nonobstructing nephroliths. Bladder is under distended. Heterogeneous enlarged prostate gland measures 5.9 x 6.4 x 5.3 cm (105 cc). IMPRESSION: 1. Findings consistent with chronic medical renal disease as described above. 2. Bilateral renal vascular calcifications versus small nonobstructing calculi cannot be differentiated. 3. No hydronephrosis or significant renal abnormality. 4. Prostatomegaly. <Electronically signed by Titi Arreola > 02/15/20 [id number]
== END ==
LOC: M RAD 08:09
PROVIDERS: ATTEND Urology
DX: N20.0 Calculus of kidney (principal)

== ENCOUNTER → 2020-06-19 | Outpatient (CLI) | payer SELFPAY, BC, OTHER | LOC: M LABSMTC 10:12 | PROVIDERS: ATTEND Pediatrics | DX: Z20.822 Contact with and (suspected) exposure to COVID-19 (principal) ==

== ENCOUNTER → 2020-08-19 | Outpatient (CLI) | payer MEDICARE, BC, OTHER ==
--- NOTE | 2020-08-19 09:04 | REP ---
INDICATION: KIDNEY STONES COMPARISON: 02/15/2020 TECHNIQUE: Real time segura scale ultrasound examination using curved array transducer. FINDINGS: Kidneys are normal in reniform shape with increased central sinus fat suggesting chronic medical renal disease. There is no evidence for hydronephrosis, nephrolithiasis, or renal mass lesion. Right kidney measures 12.9 x 6.1 x 5.6 cm. Left kidney measures 9.3 x 4.9 x 4.7 cm and includes 1.8 cm lower pole hypoechoic structure likely representing small cyst. The bladder is grossly unremarkable. IMPRESSION: 1. Chronic medical renal disease. No hydronephrosis or nephrolithiasis. 2. Presumed small left renal cyst. <Electronically signed by Titi Arreola > 08/19/20 0900
== END ==
LOC: M RAD 07:32
PROVIDERS: ATTEND Urology
DX: N20.0 Calculus of kidney (principal)

== ENCOUNTER → 2020-08-25 | Outpatient (REF) | payer MEDICARE, OTHER ==
[2020-08-27 00:23] LABS: PSA TOTAL 2.2 ng/mL (0.0-4.0)
== END ==
LOC: M SMT 13:22 → M PLALAB 13:22
PROVIDERS: ATTEND Urology
DX: R97.20 Elevated prostate specific antigen [PSA] (principal)

== ENCOUNTER → 2020-11-20 | Outpatient (REF) | payer MEDICARE, OTHER ==
[2020-11-21 17:08] LABS: Lyme Disease IgG/IgM Antibodie <0.91 ISR (0.00-0.90); Lyme Disease IgM Ab Quantitati <0.80 index (0.00-0.79)
== END ==
LOC: M LAB REF 11:22
PROVIDERS: ATTEND Internal Medicine
DX: M25.50 Pain in unspecified joint (principal); R53.83 Other fatigue

== ENCOUNTER → 2021-03-16 | Outpatient (CLI) | payer MEDICARE, OTHER, BC ==
--- NOTE | 2021-03-16 14:03 | REP ---
INDICATION: URIC ACID KIDNEY STONE COMPARISON: 08/19/2020 TECHNIQUE: Real time segura scale ultrasound examination using curved array transducer. FINDINGS: Bilateral kidneys are normal in contour, size, echogenicity, and reniform shape without hydronephrosis. Right kidney measures 14.4 x 5.7 x 5.5 cm without hydronephrosis, nephrolithiasis, cystic or renal mass lesion. Left kidney measures 11.2 x 4.2 x 5.0 cm and includes 1.6 cm midpole cyst without hydronephrosis, nephrolithiasis, or renal mass lesion. The bladder is unremarkable. Prostate gland is heterogeneous and enlarged measuring 5.8 x 5.6 x 4.7 cm (80 cc). IMPRESSION: 1. 1.6 cm left renal cyst. 2. No hydronephrosis or obvious nephrolithiasis. 3. Enlarged prostate gland. <Electronically signed by Titi Arreola > 03/16/21 [id number]
== END ==
LOC: M RAD 13:16
PROVIDERS: ATTEND Urology
DX: N20.0 Calculus of kidney (principal)

== ENCOUNTER → 2021-09-25 | Outpatient (CLI) | payer MEDICARE, OTHER, BC ==
[~2021-09-25] MED LIST changes: +LOSA25TA13 PO; -LOSA25TA14 PO
[2021-09-25 12:22] LABS: BASO % 0.3 % (0.0-1.0); EOS # 0.1 10^3/uL (0.0-0.5); EOS % 1.3 % (0.0-3.0); HEMOGLOBIN 15.7 g/dl (13.5-17.5); LYMPH # 1.7 10^3/uL (1.5-5.0); LYMPH % 27.4 % (24.0-44.0); MEAN CORPUSCULAR HEMOGLOBIN 32.2 pg (27.0-33.0); MEAN CORPUSCULAR HGB CONC 33.4 g/dl (32.0-36.5); MEAN CORPUSCULAR VOLUME 96.5 fl (80.0-96.0); MONO # 0.6 10^3/uL (0.0-0.8); MONO % 10.6 % (2.0-8.0); NEUTROPHILS # 3.6 10^3/uL (1.5-8.5); NEUTROPHILS % 60.1 % (36.0-66.0); PLATELET COUNT, AUTOMATED 204 10^3/uL (150-450); RED BLOOD COUNT 4.87 10^6/uL (4.30-6.10); WHITE BLOOD COUNT 6.1 10^3/uL (4.0-10.0)
[2021-09-25 12:40] LABS: ALBUMIN 3.7 GM/DL (3.2-5.2); CALCIUM LEVEL 8.7 MG/DL (8.8-10.2); CHOLESTEROL RISK RATIO 4.588 (<5); CREATININE FOR GFR 1.27 MG/DL (0.70-1.30); GLOMERULAR FILTRATION RATE 58.7 (>42); POTASSIUM SERUM 4.6 MEQ/L (3.5-5.1); PROSTATIC SPECIFIC AG MONITOR 2.81 NG/ML (< 4.00); TOTAL PROTEIN 7.4 GM/DL (6.4-8.2)
[2021-09-25 13:50] LABS: HEMOGLOBIN A1c 7.7 %
== END ==
LOC: M PLALAB 09:42
PROVIDERS: ATTEND Family Medicine
DX: N40.0 Benign prostatic hyperplasia without lower urinary tract symptoms (principal); E11.9 Type 2 diabetes mellitus without complications

== ENCOUNTER → 2022-03-31 | Outpatient (CLI) | payer MEDICARE, BC, OTHER | LOC: M RAD 09:50 | PROVIDERS: ATTEND Urology | DX: N20.0 Calculus of kidney (principal) ==

== ENCOUNTER → 2022-04-16 | Outpatient (CLI) | payer MEDICARE, BC, OTHER | LOC: M RAD 14:44 | PROVIDERS: ATTEND Urology | DX: N20.0 Calculus of kidney (principal) ==

== ENCOUNTER → 2022-05-07 | Outpatient (CLI) | payer MEDICARE, BC, OTHER | LOC: M WUC 08:39 | PROVIDERS: ATTEND Physician Assistant | DX: M79.675 Pain in left toe(s) (principal); S92.522A Displaced fracture of middle phalanx of left lesser toe(s), initial encounter for closed fracture; X58.XXXA Exposure to other specified factors, initial encounter; Y92.9 Unspecified place or not applicable; Y93.9 Activity, unspecified; Y99.9 Unspecified external cause status; Z12.5 Encounter for screening for malignant neoplasm of prostate | CPT/HCPCS: 36415; 73660; G0103 ==

== ENCOUNTER → 2022-05-07 | Outpatient (CLI) | payer MEDICARE, BC, OTHER | LOC: M WUC 08:36 | PROVIDERS: ATTEND Urology | DX: Z12.5 Encounter for screening for malignant neoplasm of prostate (principal) ==

== ENCOUNTER → 2022-06-14 | Outpatient (CLI) | payer MEDICARE, BC, OTHER | LOC: M PLAIMG 10:54 | PROVIDERS: ATTEND Urology | DX: N20.0 Calculus of kidney (principal); N40.0 Benign prostatic hyperplasia without lower urinary tract symptoms; R91.8 Other nonspecific abnormal finding of lung field; R59.0 Localized enlarged lymph nodes ==

== ENCOUNTER → 2022-08-31 | Outpatient (CLI) | payer MEDICARE, BC, OTHER ==
[2022-08-31 12:08] LABS: BASO % 0.7 % (0.0-1.0); EOS # 0.1 10^3/uL (0.0-0.5); EOS % 2.1 % (0.0-3.0); HEMATOCRIT 48.3 % (42.0-52.0); HEMOGLOBIN 16.4 g/dl (13.5-17.5); LYMPH # 1.6 10^3/uL (1.5-5.0); LYMPH % 28.5 % (24.0-44.0); MEAN CORPUSCULAR HEMOGLOBIN 32.7 pg (27.0-33.0); MEAN CORPUSCULAR VOLUME 96.2 fl (80.0-96.0); MONO # 0.5 10^3/uL (0.0-0.8); NEUTROPHILS # 3.3 10^3/uL (1.5-8.5); NEUTROPHILS % 59.3 % (36.0-66.0); PLATELET COUNT, AUTOMATED 202 10^3/uL (150-450); RED BLOOD COUNT 5.02 10^6/uL (4.30-6.10); WHITE BLOOD COUNT 5.6 10^3/uL (4.0-10.0)
[2022-08-31 12:36] LABS: MAU/CREAT RATIO 33.6 MCG/MG (0.0-30.0)
[2022-08-31 12:37] LABS: ALBUMIN 3.8 G/DL (3.2-5.2); ALKALINE PHOSPHATASE 66 U/L (46-116); ALT/SGPT 26 U/L (7.0-40); AST/SGOT 17 U/L (<34); BILIRUBIN,TOTAL 0.8 MG/DL (0.3-1.2); BLOOD UREA NITROGEN 23 MG/DL (9-23); CALCIUM LEVEL 8.7 MG/DL (8.3-10.6); CARBON DIOXIDE LEVEL 27 MMOL/L (20-31); CHLORIDE LEVEL 103 MMOL/L (98-107); CHOLESTEROL LEVEL 176 MG/DL (<200); CHOLESTEROL RISK RATIO 4.97 (<5); CREATININE FOR GFR 1.07 MG/DL (0.70-1.30); GLOMERULAR FILTRATION RATE > 60.0 (>42); GLUCOSE, FASTING 180 MG/DL (74-106); HDL CHOLESTEROL 35.4 MG/DL (>40); LDL CHOLESTEROL 88.6 MG/DL (<100); NON-HDL-C 140.6 MG/DL; POTASSIUM SERUM 4.6 MMOL/L (3.5-5.1); SODIUM LEVEL 137 MMOL/L (136-145); TOTAL PROTEIN 7.6 G/DL (5.7-8.2); TRIGLYCERIDES LEVEL 260 MG/DL (<150)
[2022-08-31 13:14] LABS: HEMOGLOBIN A1c 7.8 % (4.0-6.0)
== END ==
LOC: M PLALAB 07:54
PROVIDERS: ATTEND Family Medicine
DX: E11.9 Type 2 diabetes mellitus without complications (principal)

== ENCOUNTER → 2023-01-11 | Outpatient (CLI) | payer MEDICARE, BC, OTHER ==
[2023-01-11 13:47] LABS: BASO # 0.1 10^3/uL (0.0-0.2); BASO % 0.6 % (0.0-1.0); EOS # 0.1 10^3/uL (0.0-0.5); EOS % 1.3 % (0.0-3.0); HEMATOCRIT 50.4 % (42.0-52.0); LYMPH # 1.6 10^3/uL (1.5-5.0); LYMPH % 17.6 % (24.0-44.0); MEAN CORPUSCULAR HEMOGLOBIN 31.6 pg (27.0-33.0); MEAN CORPUSCULAR HGB CONC 32.9 g/dl (32.0-36.5); MONO # 0.9 10^3/uL (0.0-0.8); MONO % 9.3 % (2.0-8.0); NEUTROPHILS # 6.5 10^3/uL (1.5-8.5); NEUTROPHILS % 70.4 % (36.0-66.0); PLATELET COUNT, AUTOMATED 312 10^3/uL (150-450); RED BLOOD COUNT 5.25 10^6/uL (4.30-6.10); WHITE BLOOD COUNT 9.3 10^3/uL (4.0-10.0)
[2023-01-11 13:50] LABS: APPEARANCE, URINE CLEAR (CLEAR); BACTERIA, URINE AUTO 1+ (NEGATIVE); BILIRUBIN, URINE AUTO NEGATIVE (NEGATIVE); BLOOD, URINE BLOOD 2+ (NEGATIVE); COLOR, URINE YELLOW (YELLOW); GLUCOSE, URINE (UA) AUTO 3+ mg/dL (NEGATIVE); KETONE, URINE AUTO NEGATIVE (NEGATIVE); LEUKOCYTE ESTERASE, URINE AUTO NEGATIVE (NEGATIVE); MUCUS, URINE SMALL (NEGATIVE); NITRITE, URINE AUTO NEGATIVE (NEGATIVE); PROTEIN, URINE AUTO NEGATIVE (NEGATIVE); RBC, URINE AUTO 0 /HPF (0-3); SPECIFIC GRAVITY URINE AUTO 1.017 (1.002-1.035); SQUAMOUS EPITHELIAL CELL UR AU 0 /HPF (0-6); UROBILINOGEN, URINE AUTO 0.2 mg/dL (0.0-2.0); WBC, URINE AUTO 4 /HPF (0-3)
[2023-01-11 13:55] LABS: HEMOGLOBIN 16.6 g/dl (13.5-17.5)
[2023-01-11 14:23] LABS: ALBUMIN 2.9 G/DL (3.2-5.2); BILIRUBIN,TOTAL 0.5 MG/DL (0.3-1.2); CALCIUM LEVEL 9.2 MG/DL (8.3-10.6); CREATININE FOR GFR 1.44 MG/DL (0.70-1.30); GLOMERULAR FILTRATION RATE 50.5 (>42); POTASSIUM SERUM 4.9 MMOL/L (3.5-5.1); TOTAL PROTEIN 7.3 G/DL (5.7-8.2)
== END ==
LOC: M PLALAB 11:32
PROVIDERS: ATTEND Family Medicine
DX: R53.81 Other malaise (principal)

== ENCOUNTER → 2023-01-14 | Outpatient (CLI) | payer MEDICARE, BC, OTHER ==
[~2023-01-14] MED LIST changes: +ISOVUE-370 76% 100ML VIAL As Ordered ONE
== END ==
LOC: M RAD 14:01
PROVIDERS: ATTEND Urology
DX: R59.0 Localized enlarged lymph nodes (principal)
CPT/HCPCS: 74177; Q9967

== ENCOUNTER 2023-01-30 17:55 | Emergency (ER) | payer MEDICARE, BC, OTHER ==
[~2023-01-30] VITALS: Ht 180.3 cm; Wt 109.5 kg
[~2023-01-30 17:55] MED LIST changes: -ISOVUE-370 76% 100ML VIAL As Ordered ONE
[2023-01-30] MEDS ORDERED: AMLO1TAB24 (18:05)
[2023-01-30] MEDS ORDERED: ATOR40TA75 (18:05)
[2023-01-30] MEDS ORDERED: INVO1TAB (18:05)
[2023-01-30] MEDS ORDERED: NS 1,000 ML IV ONE (19:50)
[2023-01-30] MEDS ORDERED: LIDOCAINE 2% 5ML JELLY UROJET TOP ONE (20:10)
[2023-01-30 20:14] LABS: BASO % 0.4 % (0.0-1.0); EOS % 0.4 % (0.0-3.0); HEMATOCRIT 48.8 % (42.0-52.0); HEMOGLOBIN 16.6 g/dl (13.5-17.5); LYMPH # 1.2 10^3/uL (1.5-5.0); LYMPH % 10.7 % (24.0-44.0); MEAN CORPUSCULAR HEMOGLOBIN 32.2 pg (27.0-33.0); MEAN CORPUSCULAR VOLUME 94.6 fl (80.0-96.0); MONO % 9.4 % (2.0-8.0); NEUTROPHILS # 8.4 10^3/uL (1.5-8.5); NEUTROPHILS % 78.9 % (36.0-66.0); PLATELET COUNT, AUTOMATED 241 10^3/uL (150-450); RED BLOOD COUNT 5.16 10^6/uL (4.30-6.10); WHITE BLOOD COUNT 10.7 10^3/uL (4.0-10.0)
[2023-01-30] MEDS ORDERED: ISOVUE-370 76% 100ML VIAL As Ordered ONE (20:41)
[2023-01-30 20:43] LABS: ALBUMIN 3.9 G/DL (3.2-5.2); BILIRUBIN,DIRECT 0.4 MG/DL (<0.4); TOTAL PROTEIN 7.8 G/DL (5.7-8.2)
[2023-01-30 22:49] VITALS: BP 142/83; TEMP 98.4; O2SAT 96
[2023-01-30] MEDS ORDERED: DULC10SU2 PR (22:51)
[2023-01-30] MEDS ORDERED: MIRA3350 PO (22:51)
== END 2023-01-30 22:58 | disposition home or self-care (01) ==
LOC: M ED 17:55
DX: K59.00 Constipation, unspecified (principal); R33.9 Retention of urine, unspecified; N13.30 Unspecified hydronephrosis; N40.1 Benign prostatic hyperplasia with lower urinary tract symptoms; R91.8 Other nonspecific abnormal finding of lung field; E11.9 Type 2 diabetes mellitus without complications; I10 Essential (primary) hypertension; E78.5 Hyperlipidemia, unspecified; Z87.442 Personal history of urinary calculi; Z79.899 Other long term (current) drug therapy
CPT/HCPCS: 51702; 74018; 74177; 80047; 80076; 81001; 85025; 96360; 99284; Q9967

== ENCOUNTER → 2023-02-21 | Outpatient (CLI) | payer MEDICARE, BC, OTHER ==
[~2023-02-21] MED LIST changes: +AMLO1TAB24; +ATOR40TA75; +DULC10SU2 PR; +INVO1TAB; +MIRA3350 PO
== END ==
LOC: M RAD 15:11
PROVIDERS: ATTEND Urology
DX: N13.30 Unspecified hydronephrosis (principal)

== ENCOUNTER → 2024-04-09 | Outpatient (CLI) | payer MEDICARE, BC, OTHER ==
[~2024-04-09] MED LIST changes: -CRAN400C PO; +CRANBERRY400 MG PO; -OLME20TA2; +OLME20TA50; -POTA10808; -POTA10808 PO; +POTA10809; +POTA10809 PO
[2024-04-09 12:51] LABS: BASO # 0.1 10^3/uL (0.0-0.2); BASO % 0.7 % (0.0-1.0); EOS # 0.1 10^3/uL (0.0-0.5); EOS % 1.9 % (0.0-3.0); HEMATOCRIT 50.6 % (42.0-52.0); HEMOGLOBIN 16.9 g/dl (13.5-17.5); LYMPH # 1.8 10^3/uL (1.5-5.0); LYMPH % 27.1 % (24.0-44.0); MEAN CORPUSCULAR HEMOGLOBIN 32.4 pg (27.0-33.0); MEAN CORPUSCULAR HGB CONC 33.4 g/dl (32.0-36.5); MEAN CORPUSCULAR VOLUME 96.9 fl (80.0-96.0); MONO # 0.5 10^3/uL (0.0-0.8); MONO % 7.2 % (2.0-8.0); NEUTROPHILS # 4.2 10^3/uL (1.5-8.5); PLATELET COUNT, AUTOMATED 230 10^3/uL (150-450); RED BLOOD COUNT 5.22 10^6/uL (4.30-6.10); WHITE BLOOD COUNT 6.7 10^3/uL (4.0-10.0)
[2024-04-09 13:03] LABS: HEMOGLOBIN A1c 7.6 % (4.0-6.0)
[2024-04-09 13:18] LABS: ALBUMIN 3.6 G/DL (3.2-5.2); ALKALINE PHOSPHATASE 67 U/L (40-129); ALT/SGPT 27 U/L (7.0-40); AST/SGOT 15 U/L (<34); BLOOD UREA NITROGEN 26 MG/DL (9-23); CALCIUM LEVEL 9.6 MG/DL (8.3-10.6); CARBON DIOXIDE LEVEL 28 MMOL/L (20-31); CHLORIDE LEVEL 105 MMOL/L (98-107); CHOLESTEROL LEVEL 107 MG/DL (<200); CHOLESTEROL RISK RATIO 2.63 (<5); CREATININE FOR GFR 1.08 MG/DL (0.70-1.30); GLOMERULAR FILTRATION RATE > 60.0 (>42); GLUCOSE, FASTING 152 MG/DL (74-106); HDL CHOLESTEROL 40.6 MG/DL (>40); LDL CHOLESTEROL 43.6 MG/DL (<100); NON-HDL-C 66.4 MG/DL; POTASSIUM SERUM 4.7 MMOL/L (3.5-5.1); SODIUM LEVEL 143 MMOL/L (136-145); TOTAL PROTEIN 7.9 G/DL (5.7-8.2); TRIGLYCERIDES LEVEL 114 MG/DL (<150)
[2024-04-09 13:22] LABS: CREATININE, URINE 89.5 MG/DL
== END ==
LOC: M WUC 08:26
PROVIDERS: ATTEND Family Medicine
DX: E11.9 Type 2 diabetes mellitus without complications (principal)

== ENCOUNTER → 2024-05-08 | Outpatient (CLI) | payer MEDICARE, BC, OTHER | LOC: M WUC 10:47 | PROVIDERS: ATTEND Urology | DX: R97.20 Elevated prostate specific antigen [PSA] (principal) ==

== ENCOUNTER → 2024-05-16 | Outpatient (CLI) | payer MEDICARE, BC | LOC: M RAD 13:38 | PROVIDERS: ATTEND Urology | DX: N20.0 Calculus of kidney (principal) ==

== ENCOUNTER → 2024-11-23 | Outpatient (CLI) | payer MEDICARE, BC ==
[~2024-11-23] MED LIST changes: -FLOM0.4C39 PO; +TAMS-18 PO
[2024-11-23 12:27] LABS: ALT/SGPT 25.0 U/L (7.0-40); AST/SGOT 18.0 U/L (<34); CALCIUM LEVEL 9.2 MG/DL (8.3-10.6); CARBON DIOXIDE LEVEL 25.0 MMOL/L (20-31); CHLORIDE LEVEL 107.0 MMOL/L (98-107); CHOLESTEROL LEVEL 108.0 MG/DL (<200); CHOLESTEROL RISK RATIO 2.54 (<5); CREATININE FOR GFR 1.13 MG/DL (0.70-1.30); GLOMERULAR FILTRATION RATE 65.7 (>35); LDL CHOLESTEROL 40.1 MG/DL (<100); NON-HDL-C 65.5 MG/DL; POTASSIUM SERUM 4.7 MMOL/L (3.5-5.1); SODIUM LEVEL 143.0 MMOL/L (136-145); TRIGLYCERIDES LEVEL 127.0 MG/DL (<150)
[2024-11-23 12:29] LABS: BASO # 0.0 10^3/uL (0.0-0.2); BASO % 0.7 % (0.0-1.0); EOS # 0.1 10^3/uL (0.0-0.5); EOS % 2.0 % (0.0-3.0); LYMPH # 1.3 10^3/uL (1.5-5.0); LYMPH % 22.2 % (24.0-44.0); MONO # 0.5 10^3/uL (0.0-0.8); MONO % 8.7 % (2.0-8.0); NEUTROPHILS # 4.0 10^3/uL (1.5-8.5); NEUTROPHILS % 66.1 % (36.0-66.0); PLATELET COUNT, AUTOMATED 217 10^3/uL (150-450)
[2024-11-23 12:32] LABS: ESTIMATED AVERAGE GLUCOSE 169.0 MG/DL (60-110)
[2024-11-23 12:49] LABS: CREATININE, URINE 93.5 MG/DL; MALB URINE SIEMENS 73.0 MG/L; MAU/CREAT RATIO 78.0 MCG/MG (0.0-30.0)
== END ==
LOC: M WUC 09:49
PROVIDERS: ATTEND Family Medicine
DX: E11.69 Type 2 diabetes mellitus with other specified complication (principal)

== ENCOUNTER → 2025-03-01 | Outpatient (CLI) | payer MEDICARE, BC ==
[2025-03-01 12:51] LABS: BASO # 0.0 10^3/uL (0.0-0.2); BASO % 0.7 % (0.0-1.0); EOS # 0.1 10^3/uL (0.0-0.5); EOS % 1.3 % (0.0-3.0); LYMPH # 1.2 10^3/uL (1.5-5.0); LYMPH % 20.0 % (24.0-44.0); MONO # 0.5 10^3/uL (0.0-0.8); MONO % 8.4 % (2.0-8.0); NEUTROPHILS # 4.2 10^3/uL (1.5-8.5); NEUTROPHILS % 69.3 % (36.0-66.0); PLATELET COUNT, AUTOMATED 231 10^3/uL (150-450)
[2025-03-01 13:21] LABS: ALT/SGPT 26.0 U/L (7.0-40); AST/SGOT 19.0 U/L (<34); CALCIUM LEVEL 9.4 MG/DL (8.3-10.6); CARBON DIOXIDE LEVEL 26.0 MMOL/L (20-31); CHLORIDE LEVEL 105.0 MMOL/L (98-107); CREATININE FOR GFR 1.2 MG/DL (0.70-1.30); GLOMERULAR FILTRATION RATE 61.1 (>35); POTASSIUM SERUM 4.6 MMOL/L (3.5-5.1); SODIUM LEVEL 141.0 MMOL/L (136-145)
== END ==
LOC: M WUC 09:52
PROVIDERS: ATTEND Family Medicine
DX: R53.83 Other fatigue (principal)

== ENCOUNTER → 2025-04-02 | Outpatient (CLI) | payer MEDICARE, BC | LOC: M WUC 14:45 | PROVIDERS: ATTEND Family Medicine | DX: M25.50 Pain in unspecified joint (principal) ==

== ENCOUNTER → 2025-04-12 | Outpatient (CLI) | payer MEDICARE, BC ==
[2025-04-12 12:39] LABS: RHEUMATOID FACTOR QUANT 3.9 IU/ML (<14)
== END ==
LOC: M WUC 09:22
PROVIDERS: ATTEND Family Medicine
DX: M25.50 Pain in unspecified joint (principal)